=== PATIENT | male | born 1980 | race Two or more races ===

== ENCOUNTER 2017-12-02 15:31 | Emergency (ER) | payer BC ==
[~2017-12-02] VITALS: Ht 185.4 cm; Wt 81.6 kg
--- NOTE | 2017-12-02 15:45 | NUR ---
[id number], came to er c/o ANXIETY ATTACK, CHEST PAIN NON-RADIATING ON/OFF ~ 1 MONTH. RR is even and unlabored with nad noted. skin is warm and dry. Awaiting md for eval.
--- NOTE | 2017-12-02 17:12 | NUR ---
Patient discharged to home in stable condition. Written and verbal after care instructions given. Patient verbalizes understanding of instruction.
[2017-12-02 17:14] VITALS: BP 135/85
== END 2017-12-02 17:15 | disposition home or self-care (01) ==
LOC: ER 15:34
DX: R07.89 Other chest pain (principal); F41.9 Anxiety disorder, unspecified; K21.9 Gastro-esophageal reflux disease without esophagitis
CPT/HCPCS: 36415; 71045-TC; 85378-TC; A4606; Z7610